=== PATIENT | male | born 1980 | race Caucasian/White ===

== ENCOUNTER 2020-06-21 13:15 | Emergency (ER) | payer OTHER ==
[2020-06-21] MEDS ORDERED: Benzocaine 20% Topical Spray UD MUCMEM ONE (13:22)
[2020-06-21] MEDS ORDERED: Lidocaine 2% Viscous Solution 15 ML Cup PO ONE (13:22)
--- NOTE | 2020-06-21 13:29 | EDM.PDOC ---
ED HPI GENERAL MEDICAL PROBLEM - General Chief Complaint: ENT Problem Stated Complaint: TOOTH PAIN Time Seen by Provider: 06/21/20 13:16 Source of Information: Reports: Patient History Limitations: Reports: No Limitations - History of Present Illness INITIAL COMMENTS - FREE TEXT/NARRATIVE: HISTORY AND PHYSICAL: History of present illness: Patient is a 40-year-old male who presents to the emergency room with complaints of left upper and lower posterior dental pain and decay. He states "I have bad teeth anyway" and is "too stubborn to see a dentist". He has had pain to the posterior molars over the past 4 to 5 days. Patient denies any fever, chills, headache, change in vision, syncope or near syncope. Denies any chest pain, back pain, shortness of breath or cough. Denies any GI or symptoms. Patient has been eating and drinking appropriately. Review of systems: As per history of present illness and below otherwise all systems reviewed and negative. Past medical history: As per history of present illness and as reviewed below otherwise noncontributory. Surgical history: As per history of present illness and as reviewed below otherwise noncontributory. Social history: See social history for further information Family history: As per history of present illness and as reviewed below otherwise noncontributory. Physical exam: General: Well developed and well nourished 40-year-old male. Alert and orientated x 3. Nontoxic in appearance and in no acute distress. Vital signs are stable and have been reviewed by me. Nursing notes were reviewed. HEENT: Atraumatic, normocephalic, pupils equal and reactive bilaterally, negative for conjunctival pallor or scleral icterus, mucous membranes moist, dental decay to the left posterior upper and lower molars with generalized redness and irritation along the gumline. TMs normal bilaterally, throat clear, neck supple, nontender, trachea midline. No drooling or trismus noted. No meningeal signs. No hot potato voice noted. Lungs: Clear to auscultation, breath sounds equal bilaterally, chest nontender. Normal work of breathing, no accessory muscles used. Heart: S1S2, regular rate and rhythm without overt murmur Abdomen: Soft, nondistended, nontender. Skin: Intact, warm, dry. No lesions or rashes noted. Hematologic: No petechiae or purpra. Mucosa appropriate color and normal nail bed color and refill. Extremities: Atraumatic, moves all extremities per self without difficulty or deficits, negative for cords or calf pain. Neurovascular unremarkable. Neuro: Awake, alert, oriented. Cranial nerves II through XII unremarkable. Cerebellum unremarkable. Motor and sensory unremarkable throughout. Exam nonfocal. Notes: We discussed signs and symptoms that would prompt them to return to the Emergenc y Department. Medication, follow up and supportive care measures were reviewed and discussed. Voices understanding and is agreeable to plan of care. Denies any further questions or concerns at this time. Diagnostics: None Therapeutics: Dental Balls Prescription: Clindamycin, diclofenac Impression: Trench mouth Dental decay Plan: 1. Please take the antibiotic as prescribed. 2. Tylenol and/or ibuprofen as needed for pain management. "Tooth Balls" have been given to you; apply along the gumline every 2-3 hours as needed. Do not swallow these; external use only. 3. Follow-up with a dentist for definitive care. Return to the ED as needed and as discussed. Definitive disposition and diagnosis as appropriate pending reevaluation and review of above. Left Tooth/Teeth Pain Score (Numeric/FACES): 5 - Related Data Allergies Allergy/AdvReac Type Severity Reaction Status Date / Time Penicillins Allergy Cannot Verified 06/21/20 13:32 Remember Home Meds: Home Meds Clindamycin HCl 300 mg PO TID 7 Days #21 capsule 06/21/20 [Rx] Diclofenac Sodium [Voltaren] 75 mg PO BIDMEALS PRN #30 tab.cr 06/21/20 [Rx] ED ROS ENT - Review of Systems Review Of Systems: Comprehensive ROS is negative, except as noted in HPI. ED EXAM, ENT - Physical Exam Exam: See Below (See dictation) Course - Vital Signs Last Recorded V/S: Last Vital Signs Temp 96.5 F L 06/21/20 13:28 Pulse 75 06/21/20 13:28 Resp 16 06/21/20 13:28 BP 114/76 06/21/20 13:28 Pulse Ox 99 06/21/20 13:28 - Orders/Labs/Meds Meds: Medications Discontinued Medications Generic Name Dose Route Start Last Admin Trade Name Freq PRN Reason Stop Dose Admin Benzocaine 2 each 06/21/20 13:22 Hurricaine One 20% MUCMEM 06/21/20 13:23 ONETIME ONE Lidocaine HCl 15 ml 06/21/20 13:22 Xylocaine 2% Viscous PO 06/21/20 13:23 ONETIME ONE Departure - Departure Time of Disposition: 13:57 Disposition: Home, Self-Care 01 Clinical Impression: Dental decay, Trench mouth - Discharge Information Prescriptions: Clindamycin HCl 300 mg PO TID 7 Days #21 capsule Diclofenac Sodium [Voltaren] 75 mg PO BIDMEALS PRN #30 tab.cr PRN Reason: Pain Instructions: Trench Mouth Referrals: PCP,None [Primary Care Provider] - Forms: ED Department Discharge Additional Instructions: The following information is given to patients seen in the emergency department who are being discharged to home. This information is to outline your options for follow-up care. We provide all patients seen in our emergency department with a follow-up referral. The need for follow-up, as well as the timing and circumstances, are variable depending upon the specifics of your emergency department visit. If you don't have a primary care physician on staff, we will provide you with a referral. We always advise you to contact your personal physician following an emergency department visit to inform them of the circumstance of the visit and for follow-up with them and/or the need for any referrals to a consulting specialist. The emergency department will also refer you to a specialist when appropriate. This referral assures that you have the opportunity for follow-up care with a specialist. All of these measure are taken in an effort to provide you with optimal care, which includes your follow-up. Under all circumstances we always encourage you to contact your private physician who remains a resource for coordinating your care. When calling for follow-up care, please make the office aware that this follow-up is from your recent emergency room visit. If for any reason you are refused follow-up, please contact the [facility] Emergency Department at and asked to speak to the emergency department charge nurse. [facility] [address] [place] [id number] [id number] Thank you for choosing the [facility] emergency department in [place] for your medical needs today. It was a pleasure caring for you. Today you were seen in the emergency department for dental pain and decay. 1. Please take the antibiotic as prescribed. 2. Tylenol and/or ibuprofen as needed for pain management. "Tooth Balls" have been given to you; apply along the gumline every 2-3 hours as needed. Do not swallow these; external use only. 3. Follow-up with a dentist for definitive care. Return to the ED as needed and as discussed. Sepsis Event Note (ED) - Focused Exam Vital Signs: Vital Signs Temp Pulse Resp BP Pulse Ox 06/21/20 13:28 96.5 F L 75 16 114/76 99
== END 2020-06-21 14:20 | disposition home or self-care (01) ==
LOC: MW.ED 13:15
DX: K02.9 Dental caries, unspecified (principal); A69.1 Other Vincent's infections; Z88.0 Allergy status to penicillin
CPT/HCPCS: 99282; A9270; 99283